=== PATIENT | female | born 1960 | race African-American/Black ===

== ENCOUNTER 2022-01-28 02:15 | Emergency (ER) | payer MEDICAID, OTHER ==
[~2022-01-28] VITALS: Ht 162.6 cm; Wt 78.0 kg
[2022-01-28] MEDS ORDERED: KETAMINE HCL 50 MG/ML 10ML IV ONE (02:30)
[2022-01-28] MEDS ORDERED: HYDROCODONE/ACETAMINOPHEN 5/325MG TABLET PO ONE (02:30)
[2022-01-28] MEDS ORDERED: PROPOFOL 200MG/20ML VIAL IV ONE (02:30)
[2022-01-28] MEDS ORDERED: MORPHINE SULFATE 4 MG/ML CPJ (NOT FOR IM USE) IV ONE (02:45)
[2022-01-28] MEDS ORDERED: IBUP-2029 MT (04:26)
[2022-01-28] MEDS ORDERED: ACET-2708 MT (04:26)
[2022-01-28 06:42] VITALS: BP 178/86
== END 2022-01-28 07:15 | disposition home or self-care (01) ==
LOC: ER 02:15
DX: S82.451A Displaced comminuted fracture of shaft of right fibula, initial encounter for closed fracture (principal); W01.0XXA Fall on same level from slipping, tripping and stumbling without subsequent striking against object, initial encounter; Y93.89 Activity, other specified; Y92.012 Bathroom of single-family (private) house as the place of occurrence of the external cause
CPT/HCPCS: 27788; 73590; 73600; 73610; 96374; 99152; 99285; J2270; J2704; J3490